=== PATIENT | female | born 1995 | race Caucasian/White ===

== ENCOUNTER 2019-06-27 19:41 | Emergency (ER) | payer OTHER, BC, MEDICAID ==
--- NOTE | 2019-06-27 20:47 | EDM.PDOC ---
ED HPI GENERAL MEDICAL PROBLEM - General Chief Complaint: Genitourinary Problem Stated Complaint: PT HAS STOMACH PAIN Time Seen by Provider: 06/27/19 20:33 Source of Information: Reports: Patient History Limitations: Reports: No Limitations - History of Present Illness INITIAL COMMENTS - FREE TEXT/NARRATIVE: HISTORY AND PHYSICAL: History of present illness: Patient is a 24-year-old female who presents to the ED today with concern of abnormal vaginal bleeding and left-sided pain with cramping. Patient states back in December she had a history of known ovarian torsion in which she had to have surgery on in [facility]. Patient states starting today she started to have symptoms that were similar to when she had her torsion and on same side as her prior torsion. Patient states she has had some darker bleeding vaginally but is not as concerned about this as the left sided pain. Patient states she is sexually active but does have the Nexplanon on implant in her arm. Patient states she has not taken anything for her symptoms. Patient states she did go see Dr. Quezada today with scheduled an ultrasound for tomorrow. Patient denies fever, chills, chest pain, shortness of breath, or cough. Denies headache, neck stiff ness, change in vision, syncope, or near syncope. Denies nausea, vomiting, diarrhea, constipation, or dysuria. Has not noted any blood in urine or stool. Patient has been eating and drinking appropriately. Review of systems: As per history of present illness and below otherwise all systems reviewed and negative. Past medical history: As per history of present illness and as reviewed below otherwise noncontributory. Surgical history: As per history of present illness and as reviewed below otherwise noncontributory. Social history: See social history for further information Family history: As per history of present illness and as reviewed below otherwise noncontributory. Physical exam: General: Patient is alert, oriented, and in no acute distress. Patient sitting comfortably on exam table. HEENT: Atraumatic, normocephalic, pupils equal and reactive bilaterally, negative for conjunctival pallor or scleral icterus, mucous membranes moist, TMs normal bilaterally, throat clear, neck supple, nontender, trachea midline. No drooling or trismus noted. No meningeal signs. No hot potato voice noted. Lungs: Clear to auscultation, breath sounds equal bilaterally, chest nontender. Heart: S1S2, regular rate and rhythm without overt murmur Abdomen: Soft, nondistended. Moderate pain with palpation of lower abdomen without guarding or rebound. Negative for masses or hepatosplenomegaly. Negative for costovertebral tenderness. Pelvis: Stable nontender. Genitourinary: Deferred. Rectal: Deferred. Skin: Intact, warm, dry. No lesions or rashes noted. Extremities: Atraumatic, negative for cords or calf pain. Neurovascular unremarkable. Neuro: Awake, alert, oriented. Cranial nerves II through XII unremarkable. Cerebellum unremarkable. Motor and sensory unremarkable throughout. Exam nonfocal. Notes: Dr. Vargas verbally involved in patient care. Dr. Durán, OBGYN reception clerk for patients w/o provider, consulted on patient and thoroughly discussed patients case, including reading the report exactly as radiologist reported to Dr. Durán, and she states that because she is getting intermittent flow to the ovary (arterial), that this requires pain management with close follow up. Patient has a TVUS scheduled for tomorrow which Dr. Durán states she should keep. Per her recommendations, patient should get into OBGYN office and call for appointment in the morning. Voices understanding and is agreeable to plan of care. Denies any further questions or concerns at this time. Diagnostics: CBC, CMP, UA, Uhcg, TVUS, Rh/Blood type Therapeutics: Zofran, Morphine Prescription: [facility]20 Impression: Intermittent ovarian torsion vs early ovarian torsion, right Plan: 1. Take medication as prescribed. You can also alternate ibuprofen and Tylenol as directed for pain and discomfort. 2. Keep your ultrasound as scheduled for tomorrow. Call the women's health clinic in the morning for an appointment. The number has been provided for you of above. 3. Follow-up with [employer] and ultrasound as discussed and as scheduled. 4. Return to the ED as needed and as discussed Pelvic Pain Score (Numeric/FACES): 8 - Related Data Allergies Allergy/AdvReac Type Severity Reaction Status Date / Time topiramate [From Topamax] Allergy Other Verified 06/27/19 20:02 Home Meds: Home Meds Acyclovir 400 mg PO ASDIRECTED 06/27/19 [History] ClonazePAM [KlonoPIN] 0.5 mg PO BID 06/27/19 [History] Etonogestrel [Nexplanon] 68 mg SQ ASDIRECTED 06/27/19 [History] Onabotulinumtoxina [Botox] 1 units SUBCUT ASDIRECTED 06/27/19 [History] Ondansetron [Zofran] 4 mg PO Q6H 06/27/19 [History] traMADol [Ultram] 50 mg PO Q6H PRN 06/27/19 [History] Past Medical History Cardiovascular History: Reports: Other (See Below) 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 ED EXAM, GENERAL - Physical Exam Exam: See Below (see dictation) Course - Vital Signs Last Recorded V/S: Last Vital Signs Temp 36.7 C 06/27/19 20:05 Pulse 92 06/27/19 20:05 Resp 16 06/27/19 20:05 BP 117/72 06/27/19 20:05 Pulse Ox 96 06/27/19 20:05 - Orders/Labs/Meds Labs: Laboratory Tests 06/27/19 06/27/19 06/27/19 Range/Units 20:45 20:45 21:07 WBC 7.45 (4.0-11.0) K/uL RBC 4.53 (4.30-5.90) M/uL Hgb 14.8 (12.0-16.0) g/dL Hct 42.9 (36.0-46.0) % MCV 94.7 (80.0-98.0) fL MCH 32.7 H (27.0-32.0) pg MCHC 34.5 (31.0-37.0) g/dL RDW Std Deviation 46.8 (28.0-62.0) fl RDW Coeff of Jerald 14 (11.0-15.0) % Plt Count 180 (150-400) K/uL MPV 10.30 (7.40-12.00) fL Neut % (Auto) 55.2 (48.0-80.0) % Lymph % (Auto) 37.0 (16.0-40.0) % [place] % (Auto) 6.2 (0.0-15.0) % Eos % (Auto) 1.5 (0.0-7.0) % Baso % (Auto) 0.1 (0.0-1.5) % Neut # (Auto) 4.1 (1.4-5.7) K/uL Lymph # (Auto) 2.8 H (0.6-2.4) K/uL [place] # (Auto) 0.5 (0.0-0.8) K/uL Eos # (Auto) 0.1 (0.0-0.7) K/uL Baso # (Auto) 0.0 (0.0-0.1) K/uL Nucleated RBC % 0.0 /100WBC Nucleated RBCs # 0 K/uL Sodium (136-145) mmol/L Potassium (3.5-5.1) mmol/L Chloride (98-107) mmol/L Carbon Dioxide (21.0-32.0) mmol/L BUN (7.0-18.0) mg/dL Creatinine (0.6-1.0) mg/dL Est Cr Clr Drug Dosing mL/min Estimated GFR (MDRD) ml/min Glucose (74-106) mg/dL Calcium (8.5-10.1) mg/dL Total Bilirubin (0.2-1.0) mg/dL AST (15-37) IU/L ALT (14-63) IU/L Alkaline Phosphatase (46-116) U/L Total Protein (6.4-8.2) g/dL Albumin (3.4-5.0) g/dL Globulin (2.6-4.0) g/dL Albumin/Globulin Ratio (0.9-1.6) Urine Color YELLOW Urine Appearance CLEAR Urine pH 6.5 (5.0-8.0) Ur Specific Aspen 1.015 (1.001-1.035) Urine Protein NEGATIVE (NEGATIVE) mg/dL Urine Glucose (UA) NEGATIVE (NEGATIVE) mg/dL Urine Ketones NEGATIVE (NEGATIVE) mg/dL Urine Occult Blood NEGATIVE (NEGATIVE) Urine Nitrite NEGATIVE (NEGATIVE) Urine Bilirubin NEGATIVE (NEGATIVE) Urine Urobilinogen 0.2 (<2.0) EU/dL Ur Leukocyte Esterase NEGATIVE (NEGATIVE) Urine HCG, Qual NEGATIVE (NEGATIVE) Blood Type 06/27/19 06/27/19 Range/Units 21:07 21:07 WBC (4.0-11.0) K/uL RBC (4.30-5.90) M/uL Hgb (12.0-16.0) g/dL Hct (36.0-46.0) % MCV (80.0-98.0) fL MCH (27.0-32.0) pg MCHC (31.0-37.0) g/dL RDW Std Deviation (28.0-62.0) fl RDW Coeff of Jerald (11.0-15.0) % Plt Count (150-400) K/uL MPV (7.40-12.00) fL Neut % (Auto) (48.0-80.0) % Lymph % (Auto) (16.0-40.0) % [place] % (Auto) (0.0-15.0) % Eos % (Auto) (0.0-7.0) % Baso % (Auto) (0.0-1.5) % Neut # (Auto) (1.4-5.7) K/uL Lymph # (Auto) (0.6-2.4) K/uL [place] # (Auto) (0.0-0.8) K/uL Eos # (Auto) (0.0-0.7) K/uL Baso # (Auto) (0.0-0.1) K/uL Nucleated RBC % /100WBC Nucleated RBCs # K/uL Sodium 139 (136-145) mmol/L Potassium 4.0 (3.5-5.1) mmol/L Chloride 107 (98-107) mmol/L Carbon Dioxide 25.5 (21.0-32.0) mmol/L BUN 8 (7.0-18.0) mg/dL Creatinine 0.9 (0.6-1.0) mg/dL Est Cr Clr Drug Dosing 77.55 mL/min Estimated GFR (MDRD) > 60.0 ml/min Glucose 90 (74-106) mg/dL Calcium 9.3 (8.5-10.1) mg/dL Total Bilirubin 1.2 H (0.2-1.0) mg/dL AST 18 (15-37) IU/L ALT 19 (14-63) IU/L Alkaline Phosphatase 76 (46-116) U/L Total Protein 7.1 (6.4-8.2) g/dL Albumin 4.0 (3.4-5.0) g/dL Globulin 3.1 (2.6-4.0) g/dL Albumin/Globulin Ratio 1.3 (0.9-1.6) Urine Color Urine Appearance Urine pH (5.0-8.0) Ur Specific Aspen (1.001-1.035) Urine Protein (NEGATIVE) mg/dL Urine Glucose (UA) (NEGATIVE) mg/dL Urine Ketones (NEGATIVE) mg/dL Urine Occult Blood (NEGATIVE) Urine Nitrite (NEGATIVE) Urine Bilirubin (NEGATIVE) Urine Urobilinogen (<2.0) EU/dL Ur Leukocyte Esterase (NEGATIVE) Urine HCG, Qual (NEGATIVE) Blood Type O NEGATIVE Meds: Medications Discontinued Medications Generic Name Dose Route Start Last Admin Trade Name Freq PRN Reason Stop Dose Admin Morphine Sulfate 2 mg 06/27/19 22:41 06/27/19 23:00 Morphine IVPUSH 06/27/19 22:42 2 mg ONETIME ONE Administration Ondansetron HCl 4 mg 06/27/19 22:45 06/27/19 23:00 Zofran IVPUSH 06/27/19 22:46 4 mg ONETIME ONE Administration Departure - Departure Time of Disposition: 23:14 Disposition: Home, Self-Care 01 Clinical Impression: Ovarian torsion - Discharge Information Referrals: Shamar Richardson MD [Primary Care Provider] - Forms: ED Department Discharge Additional Instructions: The following information is given to patients seen in the emergency department who are being discharged to home. This information is to outline your options for follow-up care. We provide all patients seen in our emergency department with a follow-up referral. The need for follow-up, as well as the timing and circumstances, are variable depending upon the specifics of your emergency department visit. If you don't have a primary care physician on staff, we will provide you with a referral. We always advise you to contact your personal physician following an emergency department visit to inform them of the circumstance of the visit and for follow-up with them and/or the need for any referrals to a consulting specialist. The emergency department will also refer you to a specialist when appropriate. This referral assures that you have the opportunity for follow-up care with a specialist. All of these measure are taken in an effort to provide you with optimal care, which includes your follow-up. Under all circumstances we always encourage you to contact your private physician who remains a resource for coordinating your care. When calling for follow-up care, please make the office aware that this follow-up is from your recent emergency room visit. If for any reason you are refused follow-up, please contact the [facility] Emergency Department at and asked to speak to the emergency department charge nurse. [facility] [address] [place] [id number] [address] [facility] [address] [place] [id number] 1. Take medication as prescribed. You can also alternate ibuprofen and Tylenol as directed for pain and discomfort. 2. Keep your ultrasound as scheduled for tomorrow. Call the women's health clinic in the morning for an appointment. The number has been provided for you of above. 3. Follow-up with [employer] and ultrasound as discussed and as scheduled. 4. Return to the ED as needed and as discussed
[2019-06-27 21:54] LABS: CHLORIDE,CL 107 mmol/L (98-107); SODIUM,NA 139 mmol/L (136-145)
[2019-06-27] MEDS ORDERED: Morphine 2 MG/ML Syringe IVPUSH ONE (22:41)
[2019-06-27] MEDS ORDERED: Ondansetron 4 MG/2 ML SDV IVPUSH ONE (22:45)
--- NOTE | 2019-06-27 22:59 | US ---
INDICATION: Pelvic pain, history of ovarian torsion reversal surgery in the last 6 months TECHNIQUE: Ultrasound pelvis transabdominal and transvaginal for better assessment or to better visualize the endometrium. Real-time sonographic images with spectral and color Doppler imaging of the ovaries were obtained. COMPARISON: None FINDINGS: Uterus: 6.5 x 3.3 x 2.3 cm. Normal echotexture of the myometrium. No masses. Endometrium: Transvaginal imaging was performed to better evaluate the endometrium. 4 mm in thickness. No sign of endometrial mass or fluid. Right ovary: 2.1 x 1.2 x 2.1 cm. No ovarian or adnexal masses. There is intermittent right ovarian arterial flow. No right ovarian venous blood flow identified. Left ovary: 3.5 x 1.6 x 1.9 cm. No ovarian or adnexal masses. Normal arterial and venous blood flow. Cul-de-sac: No significant free fluid. IMPRESSION: Intermittent right ovarian arterial flow. Absent right ovarian venous blood flow. Findings are highly concerning for right ovarian torsion. Gynecology consultation recommended. Findings discussed with Dr. Henriquez at 10:55 p.m. on June 27, 2019. Dictated by Dalia aCrrera MD @ Jun 27 2019 10:52PM Signed by Dr. Dalia Carrera @ Jun 27 2019 10:57PM
== END 2019-06-27 23:30 | disposition home or self-care (01) ==
LOC: MW.ED 19:41
DX: N83.511 Torsion of right ovary and ovarian pedicle (principal); Z88.8 Allergy status to other drugs, medicaments and biological substances; Z79.899 Other long term (current) drug therapy
CPT/HCPCS: 36415; 76856; 80053; 81003; 81025; 85025; 86900; 86901; 96374; 96375; 99284; J2270; J2405

== ENCOUNTER 2019-07-03 12:25 | Emergency (ER) | payer OTHER, BC, MEDICAID ==
[2019-07-03] MEDS ORDERED: Ketorolac 30 MG/ML SDV IVPUSH ONE (13:00)
[2019-07-03] MEDS ORDERED: Ondansetron 4 MG/2 ML SDV IVPUSH ONE (13:00)
[2019-07-03] MEDS ORDERED: Sodium Chloride 0.9% 1,000 ML IV ONE (13:00)
--- NOTE | 2019-07-03 13:18 | EDM.PDOC ---
ED HPI GENERAL MEDICAL PROBLEM - General Chief Complaint: Abdominal Pain Stated Complaint: ABOMINAL PAIN, FEVER, DIZZINESS Time Seen by Provider: 07/03/19 12:48 Source of Information: Reports: Patient History Limitations: Reports: No Limitations - History of Present Illness INITIAL COMMENTS - FREE TEXT/NARRATIVE: HISTORY AND PHYSICAL: History of present illness: She states she was seen in the emergency room last week for some right lower quadrant pain as she was concerned she may have an ovarian torsion. She does have a history of ovarian torsion which she had treated in [facility]. She states that it had spontaneously resolved on its own. From her previous ER visit the ultrasound shows hyperemia of the left ovary which raised suspicion of spontaneous reversal of an ovarian torsion. She did follow-up with Dr. Durán at [facility] on 06/29/2019 and had repeat ultrasound done. She was treated for PID and placed on Flagyl and doxycycline. She states that her STD screening was negative. Patient called the clinic this morning and they encouraged her to increase her fluids. She states she has been developing subjective fevers and feeling dizzy to the point where she feels like she could fall over. She denies any syncope or near syncopal events. Denies hitting her head or having any loss of consciousness. She denies any vaginal bleeding or discharge. Patient denies any headache, change in vision, syncope or near syncope. Denies any chest pain, back pain, shortness of breath or cough. Denies any diarrhea, constipation or dysuria. Has not noted any blood in urine or stool. Patient has been eating and drinking appropriately. ; P:0 Review of systems: As per history of present illness and below otherwise all systems reviewed and negative. Past medical history: As per history of present illness and as reviewed below otherwise noncontributory. Surgical history: As per history of present illness and as reviewed below otherwise noncontributory. Social history: See social history for further information Family history: As per history of present illness and as reviewed below otherwise noncontributory. Physical exam: General: Well-developed and well-nourished 24-year-old female. Alert and oriented. Nontoxic appearing and in no acute distress. HEENT: Atraumatic, normocephalic, pupils equal and reactive bilaterally, negative for conjunctival pallor or scleral icterus, mucous membranes moist, neck supple, nontender, trachea midline. No drooling or trismus noted. No meningeal signs. No hot potato voice noted. Lungs: Clear to auscultation, breath sounds equal bilaterally, chest nontender. Heart: S1S2, regular rate and rhythm without overt murmur Abdomen: Soft, nondistended, diffuse tenderness in both lower quadrants. Negative for masses or hepatosplenomegaly. Negative for costovertebral tenderness. Pelvis: Stable nontender. Genitourinary: Deferred. Rectal: Deferred. Skin: Intact, warm, dry. No lesions or rashes noted. Extremities: Atraumatic, moves all extremities per self without difficulty or deficits, negative for cords or calf pain. Neurovascular unremarkable. Neuro: Awake, alert, oriented. Cranial nerves II through XII unremarkable. Cerebellum unremarkable. Motor and sensory unremarkable throughout. Exam nonfocal. Notes: Records were obtained from [facility] in [facility] from evaluation date of 12/20/18. Notes state that she was complaining of chronic pelvic pain, they did a laparoscopic exam which showed normal-appearing pelvis. No evidence of any active infection. No adhesions. No evidence of any endometriosis. At that time she was started on gabapentin and encouraged to follow up. I do not find any record of the patient having ovarian torsion. Patient has had ultrasound three times over the past 5 days; lab work remains unremarkable. I spoke with Dr Durán, [facility], abut this patient. Scheduled follow up for this patient. Supportive care measures were reviewed and discussed. Voices understanding and is agreeable to plan of care. Denies any further questions or concerns at this time. Diagnostics: CBC, CMP, UA, HCGU, Lactic Therapeutics: IV fluids, Zofran Prescription: None Impression: Encounter for medical screening exam Pelvic Pain Plan: 1. Continue taking your prescribed medications as directed 2. Increase your oral fluids. 3. Follow-up with Dr. Durán for re-evaluation and management, 07/06/2019 @ 10: 30am. 4. Return to the ED as needed and as discussed. Definitive disposition and diagnosis as appropriate pending reevaluation and review of above. low abd Pain Score (Numeric/FACES): 8 - Related Data Allergies Allergy/AdvReac Type Severity Reaction Status Date / Time topiramate [From Topamax] Allergy Other Verified 06/27/19 20:02 Home Meds: Home Meds Acyclovir 400 mg PO ASDIRECTED PRN 06/27/19 [History] ClonazePAM [KlonoPIN] 0.5 mg PO BID PRN 06/27/19 [History] Etonogestrel [Nexplanon] 68 mg SQ ASDIRECTED 06/27/19 [History] Onabotulinumtoxina [Botox] 1 units SUBCUT ASDIRECTED 06/27/19 [History] Ondansetron [Zofran] 4 mg PO Q6H 06/27/19 [History] traMADol [Ultram] 50 mg PO Q6H PRN 06/27/19 [History] Doxycycline Monohydrate 100 mg PO BID 07/03/19 [History] Hydrocodone/Acetaminophen [Hydrocodon-Acetaminophen 5-325] 1 tab PO TID PRN [History] metroNIDAZOLE [Metronidazole] 1 tab PO BID 07/03/19 [History] Past Medical History - Past Health History Medical/Surgical History: Denies Medical/Surgical History Cardiovascular History: Reports: Other (See Below) 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 ED EXAM, GI/ABD - Physical Exam Exam: See Below (See dictation) Course - Vital Signs Last Recorded V/S: Last Vital Signs Temp 97.8 F 07/03/19 12:33 Pulse 85 07/03/19 12:33 Resp 16 07/03/19 12:33 BP 113/64 07/03/19 12:33 Pulse Ox 98 07/03/19 12:33 - Orders/Labs/Meds Orders: Active Orders 24 hr Category Date Time Status UA RFX MELODIE AND CULT IF INDIC [URIN] Stat Lab 07/03/19 13:01 Ordered Labs: Laboratory Tests 07/03/19 07/03/19 07/03/19 Range/Units 12:45 13:08 13:08 WBC 7.38 (4.0-11.0) K/uL RBC 4.31 (4.30-5.90) M/uL Hgb 14.2 (12.0-16.0) g/dL Hct 40.7 (36.0-46.0) % MCV 94.4 (80.0-98.0) fL MCH 32.9 H (27.0-32.0) pg MCHC 34.9 (31.0-37.0) g/dL RDW Std Deviation 47.4 (28.0-62.0) fl RDW Coeff of Jerald 14 (11.0-15.0) % Plt Count 194 (150-400) K/uL MPV 10.20 (7.40-12.00) fL Neut % (Auto) 68.9 (48.0-80.0) % Lymph % (Auto) 23.0 (16.0-40.0) % [place] % (Auto) 6.5 (0.0-15.0) % Eos % (Auto) 1.5 (0.0-7.0) % Baso % (Auto) 0.1 (0.0-1.5) % Neut # (Auto) 5.1 (1.4-5.7) K/uL Lymph # (Auto) 1.7 (0.6-2.4) K/uL [place] # (Auto) 0.5 (0.0-0.8) K/uL Eos # (Auto) 0.1 (0.0-0.7) K/uL Baso # (Auto) 0.0 (0.0-0.1) K/uL Nucleated RBC % 0.0 /100WBC Nucleated RBCs # 0 K/uL Lactate (0.20-2.00) mmol/L Sodium 142 (136-145) mmol/L Potassium 4.2 (3.5-5.1) mmol/L Chloride 110 H (98-107) mmol/L Carbon Dioxide 23.0 (21.0-32.0) mmol/L BUN 6 L (7.0-18.0) mg/dL Creatinine 0.8 (0.6-1.0) mg/dL Est Cr Clr Drug Dosing 87.24 mL/min Estimated GFR (MDRD) > 60.0 ml/min Glucose 115 H (74-106) mg/dL Calcium 9.2 (8.5-10.1) mg/dL Total Bilirubin 0.6 (0.2-1.0) mg/dL AST 104 H (15-37) IU/L ALT 117 H (14-63) IU/L Alkaline Phosphatase 70 (46-116) U/L Total Protein 6.4 (6.4-8.2) g/dL Albumin 3.6 (3.4-5.0) g/dL Globulin 2.8 (2.6-4.0) g/dL Albumin/Globulin Ratio 1.3 (0.9-1.6) Urine HCG, Qual NEGATIVE (NEGATIVE) 07/03/19 Range/Units 13:45 WBC (4.0-11.0) K/uL RBC (4.30-5.90) M/uL Hgb (12.0-16.0) g/dL Hct (36.0-46.0) % MCV (80.0-98.0) fL MCH (27.0-32.0) pg MCHC (31.0-37.0) g/dL RDW Std Deviation (28.0-62.0) fl RDW Coeff of Jerald (11.0-15.0) % Plt Count (150-400) K/uL MPV (7.40-12.00) fL Neut % (Auto) (48.0-80.0) % Lymph % (Auto) (16.0-40.0) % [place] % (Auto) (0.0-15.0) % Eos % (Auto) (0.0-7.0) % Baso % (Auto) (0.0-1.5) % Neut # (Auto) (1.4-5.7) K/uL Lymph # (Auto) (0.6-2.4) K/uL [place] # (Auto) (0.0-0.8) K/uL Eos # (Auto) (0.0-0.7) K/uL Baso # (Auto) (0.0-0.1) K/uL Nucleated RBC % /100WBC Nucleated RBCs # K/uL Lactate 1.5 (0.20-2.00) mmol/L Sodium (136-145) mmol/L Potassium (3.5-5.1) mmol/L Chloride (98-107) mmol/L Carbon Dioxide (21.0-32.0) mmol/L BUN (7.0-18.0) mg/dL Creatinine (0.6-1.0) mg/dL Est Cr Clr Drug Dosing mL/min Estimated GFR (MDRD) ml/min Glucose (74-106) mg/dL Calcium (8.5-10.1) mg/dL Total Bilirubin (0.2-1.0) mg/dL AST (15-37) IU/L ALT (14-63) IU/L Alkaline Phosphatase (46-116) U/L Total Protein (6.4-8.2) g/dL Albumin (3.4-5.0) g/dL Globulin (2.6-4.0) g/dL Albumin/Globulin Ratio (0.9-1.6) Urine HCG, Qual (NEGATIVE) Meds: Medications Discontinued Medications Generic Name Dose Route Start Last Admin Trade Name Freq PRN Reason Stop Dose Admin Sodium Chloride 1,000 mls @ 999 mls/hr 07/03/19 13:00 07/03/19 13:12 Normal Saline IV 07/03/19 14:00 999 mls/hr STAT ONE Administration Ketorolac Tromethamine 30 mg 07/03/19 13:00 07/03/19 13:13 Toradol IVPUSH 07/03/19 13:01 30 mg ONETIME ONE Administration Ondansetron HCl 4 mg 07/03/19 13:00 07/03/19 13:13 Zofran IVPUSH 07/03/19 13:01 4 mg ONETIME ONE Administration Departure - Departure Time of Disposition: 14:02 Disposition: Home, Self-Care 01 Clinical Impression: Pelvic pain - Discharge Information Instructions: Pelvic Pain, Female, [id number] Referrals: Krysten Hidalgo NP [Primary Care Provider] - Forms: ED Department Discharge Additional Instructions: The following information is given to patients seen in the emergency department who are being discharged to home. This information is to outline your options for follow-up care. We provide all patients seen in our emergency department with a follow-up referral. The need for follow-up, as well as the timing and circumstances, are variable depending upon the specifics of your emergency department visit. If you don't have a primary care physician on staff, we will provide you with a referral. We always advise you to contact your personal physician following an emergency department visit to inform them of the circumstance of the visit and for follow-up with them and/or the need for any referrals to a consulting specialist. The emergency department will also refer you to a specialist when appropriate. This referral assures that you have the opportunity for follow-up care with a specialist. All of these measure are taken in an effort to provide you with optimal care, which includes your follow-up. Under all circumstances we always encourage you to contact your private physician who remains a resource for coordinating your care. When calling for follow-up care, please make the office aware that this follow-up is from your recent emergency room visit. If for any reason you are refused follow-up, please contact the [facility] at and asked to speak to the emergency department charge nurse. [facility] [address] [place] [address] [facility] [address] [place] [address] [facility] [address], [place] [address] 1. Continue taking your prescribed medications as directed 2. Increase your oral fluids. 3. Follow-up with Dr. Durán for re-evaluation and management. 4. Return to the ED as needed and as discussed. - My Orders Last 24 Hours: My Active Orders 07/03/19 13:01 UA RFX MELODIE AND CULT IF INDIC [URIN] Stat - Assessment/Plan Last 24 Hours: My Active Orders 07/03/19 13:01 UA RFX MELODIE AND CULT IF INDIC [URIN] Stat
[2019-07-03 13:38] LABS: CHLORIDE,CL 110 mmol/L (98-107); SODIUM,NA 142 mmol/L (136-145)
== END 2019-07-03 14:29 | disposition home or self-care (01) ==
LOC: MW.ED 12:25
DX: R10.2 Pelvic and perineal pain (principal); Z88.8 Allergy status to other drugs, medicaments and biological substances; Z79.899 Other long term (current) drug therapy; Z87.891 Personal history of nicotine dependence
CPT/HCPCS: 36415; 80053; 81001; 81003; 81025; 83605; 85025; 87086; 96361; 96374; 96375; 99284; J1885; J2405; J7040

== ENCOUNTER 2019-12-22 18:14 | Emergency (ER) | payer OTHER, BC, MEDICAID ==
--- NOTE | 2019-12-22 18:17 | EDM.PDOC ---
ED HPI GENERAL MEDICAL PROBLEM - General Chief Complaint: Genitourinary Problem Stated Complaint: BLADDER INFECTION Time Seen by Provider: 12/22/19 18:15 Source of Information: Reports: Patient History Limitations: Reports: No Limitations - History of Present Illness INITIAL COMMENTS - FREE TEXT/NARRATIVE: HISTORY AND PHYSICAL: History of present illness: Patient is a 24-year-old female who presents to the emergency room today with complaints of dysuria and pelvic discomfort after voiding. Patient denies any fever, chills, headache, change in vision, syncope or near syncope. Denies any chest pain, back pain, shortness of breath or cough. Denies any abdominal pain, nausea, vomiting, diarrhea, or constipation. Has not noted any blood in urine or stool. Patient has been eating and drinking appropriately. Review of systems: As per history of present illness and below otherwise all systems reviewed and negative. Past medical history: As per history of present illness and as reviewed below otherwise noncontributory. Surgical history: As per history of present illness and as reviewed below otherwise noncontributory. Social history: See social history for further information Family history: As per history of present illness and as reviewed below otherwise noncontributory. Physical exam: General: Well developed and well nourished 24-year-old female. Alert and oriented. Nontoxic-appearing and in no acute distress. HEENT: Atraumatic, normocephalic, pupils equal and reactive bilaterally, negative for conjunctival pallor or scleral icterus, mucous membranes moist, TMs normal bilaterally, throat clear, neck supple, nontender, trachea midline. No drooling or trismus noted. No meningeal signs. No hot potato voice noted. Lungs: Clear to auscultation, breath sounds equal bilaterally, chest nontender. Heart: S1S2, regular rate and rhythm without overt murmur Abdomen: Soft, nondistended, nontender. Negative for masses or hepatosplenomegaly. Negative for costovertebral tenderness. Skin: Intact, warm, dry. No lesions or rashes noted. Extremities: Atraumatic, moves all extremities per self without difficulty or deficits, negative for cords or calf pain. Neurovascular unremarkable. Neuro: Awake, alert, oriented. Cranial nerves II through XII unremarkable. Cerebellum unremarkable. Motor and sensory unremarkable throughout. Exam nonfocal. Notes: There are no current beds available to perform a pelvic exam on this patient. She states she is not concerned of any STDs although is agreeable to having testing done. I did have her self swab with assitance. Medication and supportive care measures were reviewed and discussed. Encouraged her to follow-up with Krysten Hidalgo for further evaluation and testing. Voices understanding and is agreeable to plan of care. Denies any further questions or concerns at this time. Diagnostics: UA, Jayme/Chlamydia, CAN Therapeutics: None Prescription: Flagyl Impression: Bacterial vaginosis Plan: 1. NO SEX while taking this medication. Please abstain, otherwise infection will not resolve. 2. Take the medications as directed. The gonorrhea and chlamydia tests are send out labs, therefore will not be available for 2-3 business days. 3. Please follow-up with your primary care provider in the next 1-2 days. [facility] does offer free STD testing, please follow-up with them for further STD testing needs. Return to the ED as needed and as discussed. Definitive disposition and diagnosis as appropriate pending reevaluation and review of above. Pelvic Pain Score (Numeric/FACES): 7 - Related Data Allergies Allergy/AdvReac Type Severity Reaction Status Date / Time topiramate [From Topamax] Allergy Other Verified 12/22/19 18:40 Home Meds: Home Meds Acyclovir 400 mg PO ASDIRECTED PRN 06/27/19 [History] ClonazePAM [KlonoPIN] 0.5 mg PO BID PRN 06/27/19 [History] Onabotulinumtoxina [Botox] 1 units SUBCUT ASDIRECTED 06/27/19 [History] Ondansetron [Zofran] 4 mg PO Q6H 06/27/19 [History] traMADol [Ultram] 50 mg PO Q6H PRN 06/27/19 [History] metroNIDAZOLE [Flagyl] 500 mg PO BID 7 Days #14 tablet 12/22/19 [Rx] Past Medical History - Past Health History Medical/Surgical History: Denies Medical/Surgical History Cardiovascular History: Reports: Other (See Below) 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 ED EXAM, RENAL/ - Physical Exam Exam: See Below (See dictation) Course - Vital Signs Last Recorded V/S: Last Vital Signs Temp 97.8 F 12/22/19 18:41 Pulse 85 12/22/19 18:41 Resp 16 12/22/19 18:41 BP 115/66 12/22/19 18:41 Pulse Ox 99 12/22/19 18:41 - Orders/Labs/Meds Orders: Active Orders 24 hr Category Date Time Status CHLAMYDIA AND GONORRHEA BY TMA Stat Lab 12/22/19 18:50 Received Labs: Laboratory Tests 12/22/19 12/22/19 12/22/19 Range/Units 18:50 18:50 18:50 Urine Color YELLOW Urine Appearance CLEAR Urine pH 6.0 (5.0-8.0) Ur Specific [place] >= 1.030 (1.001-1.035) Urine Protein NEGATIVE (NEGATIVE) mg/dL Urine Glucose (UA) NEGATIVE (NEGATIVE) mg/dL Urine Ketones NEGATIVE (NEGATIVE) mg/dL Urine Occult Blood NEGATIVE (NEGATIVE) Urine Nitrite NEGATIVE (NEGATIVE) Urine Bilirubin NEGATIVE (NEGATIVE) Urine Urobilinogen 0.2 (<2.0) EU/dL Ur Leukocyte Esterase NEGATIVE (NEGATIVE) Urine HCG, Qual NEGATIVE (NEGATIVE) Iris species DNA NEGATIVE (NEGATIVE) Gardnerella DNA Probe POSITIVE H (NEGATIVE) Trichomonas DNA Probe NEGATIVE (NEGATIVE) Departure - Departure Time of Disposition: 20:00 Disposition: Home, Self-Care 01 Clinical Impression: Bacterial vaginosis - Discharge Information Prescriptions: metroNIDAZOLE [Flagyl] 500 mg PO BID 7 Days #14 tablet Instructions: Bacterial Vaginosis, [id number] Referrals: Krysten Hidalgo UNIT MANAGER [Primary Care Provider] - Forms: ED Department Discharge Additional Instructions: The following information is given to patients seen in the emergency department who are being discharged to home. This information is to outline your options for follow-up care. We provide all patients seen in our emergency department with a follow-up referral. The need for follow-up, as well as the timing and circumstances, are variable depending upon the specifics of your emergency department visit. If you don't have a primary care physician on staff, we will provide you with a referral. We always advise you to contact your personal physician following an emergency department visit to inform them of the circumstance of the visit and for follow-up with them and/or the need for any referrals to a consulting specialist. The emergency department will also refer you to a specialist when appropriate. This referral assures that you have the opportunity for follow-up care with a specialist. All of these measure are taken in an effort to provide you with optimal care, which includes your follow-up. Under all circumstances we always encourage you to contact your private physician who remains a resource for coordinating your care. When calling for follow-up care, please make the office aware that this follow-up is from your recent emergency room visit. If for any reason you are refused follow-up, please contact the [facility] at and asked to speak to the emergency department charge nurse. [facility] [address] [place] [id number] [facility] [address] [place] [address] 1. NO SEX while taking this medication. Please abstain, otherwise infection will not resolve. 2. Take the medications as directed. The gonorrhea and chlamydia tests are send out labs, therefore will not be available for 2-3 business days. 3. Please follow-up with your primary care provider in the next 1-2 days. [facility] does offer free STD testing, please follow-up with them for further STD testing needs. Return to the ED as needed and as discussed. Sepsis Event Note - Focused Exam Vital Signs: Vital Signs Temp Pulse Resp BP Pulse Ox 12/22/19 18:41 97.8 F 85 16 115/66 99 Date Exam was Performed: 12/22/19 Time Exam was Performed: 20:01 - My Orders Last 24 Hours: My Active Orders 12/22/19 18:50 CHLAMYDIA AND GONORRHEA BY TMA Stat - Assessment/Plan Last 24 Hours: My Active Orders 12/22/19 18:50 CHLAMYDIA AND GONORRHEA BY TMA Stat
== END 2019-12-22 20:10 | disposition home or self-care (01) ==
LOC: MW.ED 18:14
DX: N76.0 Acute vaginitis (principal); Z79.899 Other long term (current) drug therapy; Z88.8 Allergy status to other drugs, medicaments and biological substances
CPT/HCPCS: 81003; 81025; 87480; 87491; 87510; 87591; 87660; 99283; 99284

== ENCOUNTER 2020-04-23 17:47 | Emergency (ER) | payer OTHER, BC, MEDICAID ==
[2020-04-23] MEDS ORDERED: Sodium Chloride 0.9% 1,000 ML IV ONE (17:56)
[2020-04-23] MEDS ORDERED: Sodium Chloride 0.9% 2.5 ML Syringe FLUSH PRN (17:56)
[2020-04-23] MEDS ORDERED: Sodium Chloride 0.9% 10 ML Syringe FLUSH PRN (17:56)
--- NOTE | 2020-04-23 18:05 | EDM.PDOC ---
<Jeremiah Guajardo - Last Filed: 04/23/20 22:38> ED HPI GENERAL MEDICAL PROBLEM - General Chief Complaint: Abdominal Pain Stated Complaint: ABDOMINAL PAIN 14 WEEKS Time Seen by Provider: 04/23/20 17:48 - Related Data Allergies Allergy/AdvReac Type Severity Reaction Status Date / Time topiramate [From Topamax] Allergy Other Verified 04/23/20 18:23 Home Meds: Home Meds Magnesium 100 mg PO DAILY 04/23/20 [History] Metoclopramide [Reglan] PO BID PRN 04/23/20 [History] Prenat 115/Iron Fum/Folic/Dss [ 19 Tablet] 1 tab PO DAILY 04/23/20 [ History] Pyridoxine HCl [Vitamin B-6] 1 tab PO DAILY 04/23/20 [History] busPIRone [Buspar] PO TID 04/23/20 [History] Course - Vital Signs Last Recorded V/S: Last Vital Signs Temp 97.6 F 04/23/20 22:20 Pulse 81 04/23/20 23:00 Resp 17 04/23/20 23:00 BP 102/58 L 04/23/20 23:00 Pulse Ox 98 04/23/20 23:00 - Orders/Labs/Meds Labs: Laboratory Tests 04/23/20 04/23/20 04/23/20 Range/Units 18:55 18:55 20:35 WBC 10.05 (4.0-11.0) K/uL RBC 4.01 L (4.30-5.90) M/uL Hgb 12.8 (12.0-16.0) g/dL Hct 37.0 (36.0-46.0) % MCV 92.3 (80.0-98.0) fL MCH 31.9 (27.0-32.0) pg MCHC 34.6 (31.0-37.0) g/dL RDW Std Deviation 45.9 (28.0-62.0) fl RDW Coeff of Jerald 14 (11.0-15.0) % Plt Count 181 (150-400) K/uL MPV 9.30 (7.40-12.00) fL Neut % (Auto) 72.7 (48.0-80.0) % Lymph % (Auto) 20.2 (16.0-40.0) % [place] % (Auto) 6.1 (0.0-15.0) % Eos % (Auto) 0.9 (0.0-7.0) % Baso % (Auto) 0.1 (0.0-1.5) % Neut # (Auto) 7.3 H (1.4-5.7) K/uL Lymph # (Auto) 2.0 (0.6-2.4) K/uL [place] # (Auto) 0.6 (0.0-0.8) K/uL Eos # (Auto) 0.1 (0.0-0.7) K/uL Baso # (Auto) 0.0 (0.0-0.1) K/uL Nucleated RBC % 0.0 /100WBC Nucleated RBCs # 0 K/uL Sodium 135 L (136-145) mmol/L Potassium 3.5 (3.5-5.1) mmol/L Chloride 104 (98-107) mmol/L Carbon Dioxide 22.9 (21.0-32.0) mmol/L BUN 7 (7.0-18.0) mg/dL Creatinine 0.6 (0.6-1.0) mg/dL Est Cr Clr Drug Dosing 115.33 mL/min Estimated GFR (MDRD) > 60.0 ml/min Glucose 94 (74-106) mg/dL Calcium 8.5 (8.5-10.1) mg/dL Total Bilirubin 0.4 (0.2-1.0) mg/dL AST 19 (15-37) IU/L ALT 21 (14-63) IU/L Alkaline Phosphatase 57 (46-116) U/L Total Protein 6.4 (6.4-8.2) g/dL Albumin 3.2 L (3.4-5.0) g/dL Globulin 3.2 (2.6-4.0) g/dL Albumin/Globulin Ratio 1.0 (0.9-1.6) Urine Color YELLOW Urine Appearance CLEAR Urine pH 6.0 (5.0-8.0) Ur Specific [place] 1.015 (1.001-1.035) Urine Protein NEGATIVE (NEGATIVE) mg/dL Urine Glucose (UA) NEGATIVE (NEGATIVE) mg/dL Urine Ketones NEGATIVE (NEGATIVE) mg/dL Urine Occult Blood NEGATIVE (NEGATIVE) Urine Nitrite NEGATIVE (NEGATIVE) Urine Bilirubin NEGATIVE (NEGATIVE) Urine Urobilinogen 0.2 (<2.0) EU/dL Ur Leukocyte Esterase NEGATIVE (NEGATIVE) Meds: Medications Discontinued Medications Generic Name Dose Route Start Last Admin Trade Name Freq PRN Reason Stop Dose Admin Sodium Chloride 1,000 mls @ 999 mls/hr 04/23/20 17:56 04/23/20 18:58 Normal Saline IV 04/23/20 18:56 999 mls/hr STAT ONE Administration Morphine Sulfate 2 mg 04/23/20 21:04 04/23/20 21:13 Morphine IVPUSH 04/23/20 21:05 2 mg ONETIME ONE Administration Sodium Chloride 10 ml 04/23/20 17:56 Saline Flush FLUSH ASDIRECTED PRN Keep Vein Open Sodium Chloride 2.5 ml 04/23/20 17:56 Saline Flush FLUSH ASDIRECTED PRN Keep Vein Open Departure - Departure Time of Disposition: 22:38 Disposition: Home, Self-Care 01 Condition: Good Clinical Impression: Abdominal pain, Second trimester Clinical Impression: (Ruled Out): First trimester - Discharge Information Instructions: Abdominal Pain During Referrals: Shamar Richardson MD [Primary Care Provider] - Forms: ED Department Discharge Additional Instructions: Follow-up with ENERGY TECHNICIAN in the outpatient setting. Take all medications as prescribed. Return to the ER with any new or worsening symptoms. The following information is given to patients seen in the emergency department who are being discharged to home. This information is to outline your options for follow-up care. We provide all patients seen in our emergency department with a follow-up referral. The need for follow-up, as well as the timing and circumstances, are variable depending upon the specifics of your emergency department visit. If you don't have a primary care physician on staff, we will provide you with a referral. We always advise you to contact your personal physician following an emergency department visit to inform them of the circumstance of the visit and for follow-up with them and/or the need for any referrals to a consulting specialist. The emergency department will also refer you to a specialist when appropriate. This referral assures that you have the opportunity for follow-up care with a specialist. All of these measure are taken in an effort to provide you with optimal care, which includes your follow-up. Under all circumstances we always encourage you to contact your private physician who remains a resource for coordinating your care. When calling for follow-up care, please make the office aware that this follow-up is from your recent emergency room visit. If for any reason you are refused follow-up, please contact the [facility] Emergency Department at and asked to speak to the emergency department charge nurse. - Assessment/Plan Assessment:: CT scan of the abdomen was negative for evidence of appendicitis. Dr. Stiles came in and evaluated the patient again and determined she was appropriate for discharge home. Patient is agreeable with this plan, hemodynamically stable the time of discharge. Dr. Stiles wrote a prescription for pain for home and encouraged to follow-up with OB in the outpatient setting. Return precautions provided. <Purnima Freeman E - Last Filed: 04/28/20 10:01> ED HPI GENERAL MEDICAL PROBLEM - General Source of Information: Reports: Patient History Limitations: Reports: No Limitations - History of Present Illness INITIAL COMMENTS - FREE TEXT/NARRATIVE: HISTORY AND PHYSICAL: History of present illness: Patient is a 25-year-old female who presents to the emergency room with complaints of generalized lower abdominal pain. She was over at [facility] with complaints of the abdominal pain and nausea. Her ENERGY TECHNICIAN did an ultrasound which showed the fetus was okay, she encouraged that she come to the emergency room for an in-depth evaluation. Patient says that she has pain on both sides of her low abdomen, right lower quadrant is somewhat tender. Patient denies any fever, chills, headache, change in vision, syncope or near syncope. Denies any chest pain, back pain, shortness of breath or cough. Denies any vaginal bleeding/discharge, vomiting, diarrhea, constipation or dysuria. Has not noted any blood in urine or stool. Patient has been eating and drinking appropriately. 2, para 1 Review of systems: As per history of present illness and below otherwise all systems reviewed and negative. Past medical history: As per history of present illness and as reviewed below otherwise noncontributory. Surgical history: As per history of present illness and as reviewed below otherwise noncontributory. Social history: See social history for further information Family history: As per history of present illness and as reviewed below otherwise noncontributory. Physical exam: General: Well-developed and well-nourished 25-year-old female. Alert and oriented. Nontoxic-appearing and in no acute distress. HEENT: Atraumatic, normocephalic, pupils equal and reactive bilaterally, negative for conjunctival pallor or scleral icterus, mucous membranes moist, TMs normal bilaterally, throat clear, neck supple, nontender, trachea midline. No drooling or trismus noted. No meningeal signs. No hot potato voice noted. Lungs: Clear to auscultation, breath sounds equal bilaterally, chest nontender. Wearing a ZIO patch Heart: S1S2, regular rate and rhythm without overt murmur Abdomen: Soft, nondistended, nontender. Negative for masses or hepatosplenomegaly. Negative for costovertebral tenderness. Pelvis: Stable nontender. Skin: Intact, warm, dry. No lesions or rashes noted. Extremities: Atraumatic, moves all extremities per self without difficulty or deficits, negative for cords or calf pain. Neurovascular unremarkable. Neuro: Awake, alert, oriented. Cranial nerves II through XII unremarkable. Cerebellum unremarkable. Motor and sensory unremarkable throughout. Exam nonfocal. Notes: Dr. Santiago, OBGYN at [facility] performed an US this evening with confirmed IUP with heart rate of 149 and active fetus. Placenta appears normal, posterior position. Measuring at 14 weeks and 4 days. Normal right and left ovary. Ultrasound is indeterminant, the radiologist states he cannot see the appendix well enough to rule in or rule out appendicitis. Patient states her pain is still notable, bilaterally and she is oil process stillman in the right lower quadrant. I did consult Dr. Irene, general surgeon director of strategic communications for this patient. He states he will come in and evaluate her. I also spoke with Dr. Santiago, ENERGY TECHNICIAN on-call as she is the one who referred her to come to the emergency room. She was updated on patient's status and likelihood of admission. She is agreeable that the patient can receive IV morphine while here. Patient's aware of all findings and the surgeon coming to evaluate her. Dr Irene has been here and evaluated the patient. He would like a CT scan of her abdomen/pelvis and has reviewed the risks vs benefits of this while . Diagnostics: CBC, CMP, UA, right lower quadrant ultrasound Therapeutics: IV fluid, morphine Definitive disposition and diagnosis as appropriate pending reevaluation and review of above. 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 ED EXAM, GI/ABD - Physical Exam Exam: See Below (See dictation) Course - Vital Signs Last Recorded V/S: Last Vital Signs Temp 97.6 F 04/23/20 22:20 Pulse 81 04/23/20 23:00 Resp 17 04/23/20 23:00 BP 102/58 L 04/23/20 23:00 Pulse Ox 98 04/23/20 23:00 - Orders/Labs/Meds Labs: Laboratory Tests 04/23/20 04/23/20 04/23/20 Range/Units 18:55 18:55 20:35 WBC 10.05 (4.0-11.0) K/uL RBC 4.01 L (4.30-5.90) M/uL Hgb 12.8 (12.0-16.0) g/dL Hct 37.0 (36.0-46.0) % MCV 92.3 (80.0-98.0) fL MCH 31.9 (27.0-32.0) pg MCHC 34.6 (31.0-37.0) g/dL RDW Std Deviation 45.9 (28.0-62.0) fl RDW Coeff of Jerald 14 (11.0-15.0) % Plt Count 181 (150-400) K/uL MPV 9.30 (7.40-12.00) fL Neut % (Auto) 72.7 (48.0-80.0) % Lymph % (Auto) 20.2 (16.0-40.0) % [place] % (Auto) 6.1 (0.0-15.0) % Eos % (Auto) 0.9 (0.0-7.0) % Baso % (Auto) 0.1 (0.0-1.5) % Neut # (Auto) 7.3 H (1.4-5.7) K/uL Lymph # (Auto) 2.0 (0.6-2.4) K/uL [place] # (Auto) 0.6 (0.0-0.8) K/uL Eos # (Auto) 0.1 (0.0-0.7) K/uL Baso # (Auto) 0.0 (0.0-0.1) K/uL Nucleated RBC % 0.0 /100WBC Nucleated RBCs # 0 K/uL Sodium 135 L (136-145) mmol/L Potassium 3.5 (3.5-5.1) mmol/L Chloride 104 (98-107) mmol/L Carbon Dioxide 22.9 (21.0-32.0) mmol/L BUN 7 (7.0-18.0) mg/dL Creatinine 0.6 (0.6-1.0) mg/dL Est Cr Clr Drug Dosing 115.33 mL/min Estimated GFR (MDRD) > 60.0 ml/min Glucose 94 (74-106) mg/dL Calcium 8.5 (8.5-10.1) mg/dL Total Bilirubin 0.4 (0.2-1.0) mg/dL AST 19 (15-37) IU/L ALT 21 (14-63) IU/L Alkaline Phosphatase 57 (46-116) U/L Total Protein 6.4 (6.4-8.2) g/dL Albumin 3.2 L (3.4-5.0) g/dL Globulin 3.2 (2.6-4.0) g/dL Albumin/Globulin Ratio 1.0 (0.9-1.6) Urine Color YELLOW Urine Appearance CLEAR Urine pH 6.0 (5.0-8.0) Ur Specific [place] 1.015 (1.001-1.035) Urine Protein NEGATIVE (NEGATIVE) mg/dL Urine Glucose (UA) NEGATIVE (NEGATIVE) mg/dL Urine Ketones NEGATIVE (NEGATIVE) mg/dL Urine Occult Blood NEGATIVE (NEGATIVE) Urine Nitrite NEGATIVE (NEGATIVE) Urine Bilirubin NEGATIVE (NEGATIVE) Urine Urobilinogen 0.2 (<2.0) EU/dL Ur Leukocyte Esterase NEGATIVE (NEGATIVE)
[2020-04-23 19:32] LABS: BLOOD UREA NITROGEN,BUN 7 mg/dL (7.0-18.0); CARBON DIOXIDE,CO2 22.9 mmol/L (21.0-32.0); CHLORIDE,CL 104 mmol/L (98-107); GLUCOSE RANDOM 94 mg/dL (74-106); POTASSIUM,K 3.5 mmol/L (3.5-5.1); SODIUM,NA 135 mmol/L (136-145)
--- NOTE | 2020-04-23 20:32 | US ---
Limited abdominal ultrasound: Multiple real-time images of the right lower abdomen were obtained. I do not believe that appendix is seen well enough to rule in or rule out appendicitis. Impression: 1. Indeterminate appendiceal ultrasound. Diagnostic code #2 This report was dictated in MDT
[2020-04-23] MEDS ORDERED: Morphine 2 MG/ML Syringe IVPUSH ONE (21:04)
--- NOTE | 2020-04-23 22:23 | CT ---
CT abdomen and pelvis Technique: Multiple axial sections were obtained from above the dome of the diaphragm inferiorly through the pubic symphysis. Intravenous contrast was not utilized. Findings: Appendix is seen and appears normal in size. Visualized lung bases show nothing acute. Noncontrast appearance of the liver and spleen appears within normal limits. Adrenal glands show no nodule. Kidneys show no abnormal calcifications. No ureteral stone or ureteral calcifications are seen. Pancreas shows no discrete abnormality. Single intrauterine is seen. No free fluid or inflammatory change is seen. Bone window settings were reviewed which shows no acute osseous finding. Minimal fat-containing umbilical hernia is noted. Impression: 1. No findings of appendicitis. Nothing acute is appreciated on noncontrast CT study of the abdomen and pelvis. 2. Single intrauterine . Diagnostic code #1 This report was dictated in MDT
--- NOTE | 2020-04-23 22:53 | PCM.SN.2 ---
- Free Text/Narrative Note: pt seen, chart reviewed; abd pain X 5 days, pain persisted even after 2 mg iv morphine; and hurted when jump up and down, on exam, pain at RLQ, wbc 10.05; seek permission from her OB doc, proceed w ct; CT -ve for appendicitis; and pain improved alot; will dc pt home; shaneka w her OB provider this wk; [id number]
--- NOTE | 2020-04-24 09:45 | CONS ---
DATE OF CONSULTATION: 04/23/2020 DATE OF : 1995 PRIMARY CARE PHYSICIAN: TILA THOMPSON Consult is from [facility] in the emergency room. CONSULTING QUESTION: Abdominal pain. HISTORY OF PRESENT ILLNESS: The patient is a 25-year-old 14-week gestation lady, complained of a 5- day history of gradually worsening abdominal pain. The pain is bilateral. The pain is worse in the middle, and the pain intensifies. She sought help in the emergency room. The patient denied fever, chills, or diarrhea and denied prior episode, and the patient has been nauseated for a long time since gestation. ALLERGIES: Please refer to nursing for details. HOME MEDICATIONS: Please refer to nursing for details. FAMILY HISTORY: Noncontributory. PAST MEDICAL HISTORY: Significant for no diabetes, MA, CVA, or hypertension. PAST SURGICAL HISTORY: The patient had a laparoscopic examination for ovarian torsion 2 years ago, and the patient also had a miscarriage x1 in the past. PHYSICAL EXAMINATION: GENERAL: A very pleasant lady, smiled to the doctor, very polite, and comfortable lying in bed. HEENT: Normocephalic and atraumatic. Sclerae were anicteric. LUNGS: Clear to auscultation. HEART: Regular rate and rhythm. ABDOMEN: Soft and nondistended. No pulsating tender midline abdominal structure. Mild tenderness on the right lower quadrant. No rebound tenderness. Upon jumping up and down, the patient had mild discomfort on the right side. LABORATORY VALUE UPON CONSULTATION: White count 10.05 and H and H are 13 and 37. Lactate is 1.5. BUN is 7, and creatinine is 0.6. Liver function tests are within normal limit. UA: No signs of a UTI. RADIOGRAPHIC DATA: Ultrasound was done and does not seem to have any relationship to the appendicitis. IMPRESSION: The patient has been hurting jumping up and down, and the pain has gradually increased, and although the patient denies fever, chills, and diarrhea, it is concerning, and on examination, she has pain in the right lower quadrant and on jumping up and down, the patient also has discomfort in the right lower quadrant. Situation like that, the patient would benefit from a CAT scan. Long discussion with the CAT scan regarding her and also called the patient's obstetrics doctor seeking permission, and she has agreed for the patient to have a CAT scan. Depending on the CAT scan result, we will proceed with appropriate management. ADDENDUM: CAT scan was negative for appendicitis, and the patient's pain is also much improved, and decided to send the patient home and remind the patient about any change in clinical situation, increase in pain, fever, or throws up, the patient will need to return to the emergency room for assessment, and otherwise, the patient gets some pain medication to use at home, and also, the patient has a followup appointment with her OB in the next 1 to 2 days. The patient voiced understanding. As always, thank you for your kind referral. SHANELL / ROC /[id number]
== END 2020-04-23 23:05 | disposition home or self-care (01) ==
LOC: MW.ED 17:47
DX: O99.89 Other specified diseases and conditions complicating pregnancy, childbirth and the puerperium (principal); R10.31 Right lower quadrant pain; Z88.8 Allergy status to other drugs, medicaments and biological substances; Z79.899 Other long term (current) drug therapy; Z3A.14 14 weeks gestation of pregnancy
CPT/HCPCS: 36415; 74176; 76705; 80053; 81003; 85025; 96374; 99284; J2270; J7030; 99283